=== PATIENT | female | born 1930 | race Caucasian/White ===

== ENCOUNTER → 2016-11-03 | Outpatient (CLI) | payer MEDICARE ==
[~2016-11-03] MED LIST: ANASTROZOLE1 MG; ASPIRIN CHILDRE81 MG PO; FISH OIL CONCEN1 SGL PO; GLUCOSAMINE500 MG PO; LISINOPRIL10 MG PO; LORTAB 5/500 501 TAB PO; MEDROL 4MG. DOSE4 MG PO; NABUMETONE500 M1 PO; NEURONTIN 100100 MG PO; SERTRALINE25 MG PO; VITAMIN C500 M1 PO
--- NOTE | 2016-11-03 14:09 | RADIOLOGY REPORT PS360 ---
[id number] VIEWS HISTORY: ACUTE LT SHOULDER PAIN ORDERING PHYSICIAN: Tarik Robles MD PATIENT AGE: 86 years COMPARISON: None FINDINGS: Moderate osteoarthritic change involves the glenohumeral joint with decrease in joint space, osteosclerosis, and osteophyte formation. A calcific density is present along the superior aspect of the joint space measuring 13 mm and may represent a loose body. No acute fracture or dislocation. No lytic or blastic change. IMPRESSION: Osteoarthritis of the left shoulder with possible loose body superiorly
== END ==
LOC: RAD 13:18
DX: M25.512 Pain in left shoulder (principal)